=== PATIENT | male | born 1965 | race Hispanic/Latino ===

== ENCOUNTER 2019-12-01 16:35 | Observation (INO) | payer BC ==
[~2019-12-01] VITALS: Ht 172.7 cm; Wt 101.3 kg
--- NOTE | 2019-12-01 16:48 | NUR ---
PATIENT AMBULATED TO ROOM WITH STEADY GAIT AND PHYSICIAN NOTIFIED OF PATIENT STATUS
--- NOTE | 2019-12-01 16:50 | NUR ---
PT IN NO RESP DISTRESS, LUNGS CLEAR. UPDATED ON POC AND TESTING. AT [email or web address]
--- NOTE | 2019-12-01 17:15 | NUR ---
Portable xray done at this time. Explained wait time for results. Showed understanding
--- NOTE | 2019-12-01 17:20 | NUR ---
PT AND UPDATED ON PENDING LABS AND LACTIC ACID DRAWN ORDERED
[2019-12-01 17:36] LABS: HEMATOCRIT 40.1 % (39.0-50.0); IMMATURE GRANULOCYTES 0.8 % (0.0-5.0); MEAN CELL VOLUME 93.3 fL CALC (80.0-100.0); MEAN CORPUSCULAR HGB 32.1 pG CALC (26.0-32.0); MEAN CORPUSCULAR HGB CONC 34.4 g/dL CAL (32.0-36.0); NEUT# 27.12 thou/uL (1.82-7.42); RED BLOOD COUNT 4.3 mill/uL (4.70-6.10); RED CELL DISTRI WIDTH 13.9 % (11.5-15.5)
[2019-12-01] MEDS ORDERED: METFORMIN500 M2 PO (17:36)
[2019-12-01] MEDS ORDERED: LOVASTATIN40 M1 PO (17:36)
[2019-12-01] MEDS ORDERED: OMEPRAZOLE DR40 MG PO (17:36)
[2019-12-01] MEDS ORDERED: HYDROCHLOROT25 MG PO (17:37)
[2019-12-01] MEDS ORDERED: LISINOPRIL10 M1 PO (17:37)
[2019-12-01] MEDS ORDERED: DEPO-TESTOS200 MG/M1 IM (17:39)
[2019-12-01 17:41] LABS: HEMOGLOBIN 13.8 g/dl (14.0-18.0)
[2019-12-01 17:54] LABS: ANION GAP 13 (6-22 (CALC)); BUN 19 mg/dL (9-20); BUN/CREATININE RATIO 20 (12-20 (CALC)); CARBON DIOXIDE 26 mmol/l (22-30); CHLORIDE 98 mmol/l (95-108); GFR > 60 ML/MIN (>=60 (CALC)); GFR FOR AFR.AMER. > 60 ML/MIN (>=60 (CALC)); POTASSIUM 3.4 mmol/l (3.5-5.1)
[2019-12-01 18:03] LABS: SODIUM 134 mmol/l (137-146)
--- NOTE | 2019-12-01 18:25 | NUR ---
EDP at bedside to discuss clinical findings with pt
--- NOTE | 2019-12-01 18:45 | NUR ---
PT RESTING SUPINE IN NO DISTRESS, IV ABT INFUSING WELL. PT DENIES CO
[2019-12-01 18:59] LABS: C-REACTIVE PROTEIN 13.4 mg/dL (0-0.9)
--- NOTE | 2019-12-01 19:11 | NUR ---
REPORT TO DILMA REYES MS AND BEDSIDE REPORT TO TAMIA ESPARZA RN. PT ASSISTED TO WC ADN TELE APPLIED. IV AZITHROMYCIN STILL INFUSING, NO DIFFICULTIES . RESP EVEN AND UNLABORED
--- NOTE | 2019-12-01 19:17 | NUR ---
PT TRANSPORTED TO DC VIA WC WITH TAMIA ESPARZA RN IN NO DISTRESS
[2019-12-01 19:20] VITALS: BP 126/71
--- NOTE | 2019-12-01 19:21 | NUR ---
PT ARRIVED TO THE FLOOR VIA WC ACCOMPANIED BY ED NURSE. PT APPEARS TO BE IN STABLE CONDITION AT THIS TIME. AIDE IN W/PT OBTAINING WEIGHT, VS AND ORIENTING PT TO ROOM, CALL SYSTEM, LIGHTS AND TV. PT REPORTS BEING HUNGRY, WILL PROVIDE FOOD AVAILABLE.
--- NOTE | 2019-12-01 19:50 | NUR ---
PT ASSESSMENT COMPLETED AT THIS TIME. V/S ARE STABLE, TEMP 99.0 PT DENIES SOB, CHEST PAIN, DIZZINESS, ABD PAIN. NEURO'S APPEAR INTACT. LUNG SOUNDS ARE DIM/CLEAR. SKIN APPEARS INTACT. IV ANTIBIOTIC THERAPY COMPLETED AT THIS TIME AND 20 TO RLC FLUSHES/APPEARS HEALTHY. PT IS ASKING FOR FOOD, REPORTS BEING HUNGRY, WILL PROVIDE FOOD AND FLUIDS. PT DENIES ANY OTHER NEEDS AT THIS TIME.
[2019-12-01 20:23] LABS: URINE BILIRUBIN - DIPSTICK NEGATIVE (NEGATIVE); URINE BLOOD DIPSTICK TRACE-INTACT (NEGATIVE); URINE CLARITY CLEAR; URINE COLOR YELLOW; URINE GLUCOSE - DIPSTICK NEGATIVE (NEGATIVE); URINE KETONE NEGATIVE (NEGATIVE); URINE LEUK ESTERASE NEGATIVE (Negative); URINE NITRITE - DIPSTICK NEGATIVE (Negative); URINE PH 5.5 (4.5-8.0); URINE PROTEIN - DIPSTICK NEGATIVE (NEG-TRACE); URINE SPECIFIC GRAVITY 1.025; URINE UROBILINOGEN - DIPSTICK 0.2 E.U./dL (0.2)
--- NOTE | 2019-12-01 21:17 | NUR ---
BLOOD DRAWN FOR LAB ORDERED. FOOD PROVIDED. PT IS UPRIGHT TALKING ON CELL PHONE W/TV GOING. NO S/O DISTRESS NOTED. IVF RUNNING @100 TO SITE IN RAC/SITE HEALTHY.
[2019-12-02 01:31] VITALS: BP 102/62
[2019-12-02 04:02] VITALS: BP 106/66
--- NOTE | 2019-12-02 04:45 | NUR ---
BLOOD DRAWN FOR LAB AND IVF REPLENISHED. PT DENIES ANY OTHER NEEDS, PT WAS SLEEPING, BUT AWOKE TO MY ENTERING ROOM. URINAL EMPTIED OF 400CC OF CLEAR YELLOW URINE.
--- NOTE | 2019-12-02 07:15 | NUR ---
CHANGE OF SHIFT REPORT RECEIVED FROM AMY PERERA. PT IN [place] ISOLATION PENDING RESULT COVID-19 SWAB RESULT. ART PSYCHOTHERAPIST OR THERAPIST WILL CONTINUE TO MONITOR
[2019-12-02 07:54] LABS: HEMOGLOBIN 13.2 g/dl (14.0-18.0); IMMATURE GRANULOCYTES 0.4 % (0.0-5.0); MEAN CELL VOLUME 94.9 fL CALC (80.0-100.0); MEAN CORPUSCULAR HGB 32.1 pG CALC (26.0-32.0); MEAN CORPUSCULAR HGB CONC 33.8 g/dL CAL (32.0-36.0); NEUT# 16.93 thou/uL (1.82-7.42); RED BLOOD COUNT 4.11 mill/uL (4.70-6.10); RED CELL DISTRI WIDTH 14.4 % (11.5-15.5)
[2019-12-02 08:00] LABS: ANION GAP 10 (6-22 (CALC)); BUN 19 mg/dL (9-20); BUN/CREATININE RATIO 22 (12-20 (CALC)); CARBON DIOXIDE 24 mmol/l (22-30); CHLORIDE 101 mmol/l (95-108); CREATININE 0.9 mg/dL (0.7-1.3); GFR > 60 ML/MIN (>=60 (CALC)); GFR FOR AFR.AMER. > 60 ML/MIN (>=60 (CALC)); POTASSIUM 3.6 mmol/l (3.5-5.1); SODIUM 133 mmol/l (137-146)
[2019-12-02 08:38] VITALS: BP 142/81
--- NOTE | 2019-12-02 10:11 | NUR ---
BANK WORKER CALLED PCG BACK. PCG ABLE TO PROVIDE PT'S PIN NUMBER. POC REVIEWED WITH PCG. PCG ADVISED TO CALL BACK WITH ANY QUESTIONS OR CONCERNS. BANK WORKER WILL CONTINUE TO MONITOR.
[2019-12-02 11:05] VITALS: BP 109/55
--- NOTE | 2019-12-02 11:30 | NUR ---
POC REVIEWED WITH PT. FLUIDS DISCONTINUED PER ORDER. MEDICATION ADMINISTERED PER ORDER. PT DENIES PAIN OR DISCOMFORT. LIVE SOURCE OPERATOR WILL CONTINUE TO MONITOR. CALL LIGHT WITHIN EASY REACH.
--- NOTE | 2019-12-02 16:00 | NUR ---
PT RESTING COMFORTABLY. POC REVIEWED WITH PT. PT RECEPTIVE TO TEACHING. PT AGREES WITH POC. CALL LIGHT WITHIN EASY REACH, BED IN LOWEST POSITION COFFEE SHOP AIDE WILL CONTINUE TO MONITOR.
[2019-12-02 16:29] VITALS: BP 116/60
[2019-12-02 19:16] VITALS: BP 122/74
--- NOTE | 2019-12-02 19:40 | NUR ---
PT TAKING SHOWER, ASSISTED BY AIDE, PT DENIES WEAKNESS, SOB OR DIZZINESS AND IS SELF CARE. PT REMINDED OF [employer] IN RESTROOM/SHOWER FOR ASSISTANCE AND INSTRUCTED TO CALL WHEN OUT OF SHOWER FOR ANTIBIOTIC THERAPY TO BE ADMINISTERED. NO S/O DISTRESS NOTED.
--- NOTE | 2019-12-02 20:49 | NUR ---
PT MEDICATED W/IV ANTIBIOTIC THERAPY. PT REPORTS FEELING MUCH BETTER, ONLY SLIGHT PRESSURE IN CHEST LIKE HE HAD YESTEREDAY PRIOR TO COMING IN. POC DISCUSSED W/PT ALONG W/MEDICATIONS. PT IS TALKATIVE AND SMILING. NO S/O DISTRESS. PT ENCOURAGED TO CALL IF ANY NEEDS ARISE. DENIES NEED FOR FOOD, SNACK AT THIS TIME, HAS SNACKS ON BST. CALL LIGHT IN HAND.
[2019-12-03] VITALS: BP 115/68
--- NOTE | 2019-12-03 00:03 | NUR ---
AIDE IN W/PT OBTAINING V/S. PT DENIES ANY NEEDS AT THIS TIME. NO S/O DISTRESS NOTED. PT ENCOURAGED TO CALL NEEDS ARISE.
[2019-12-03 03:40] VITALS: BP 105/65
--- NOTE | 2019-12-03 04:36 | NUR ---
BLOOD DRAWN FOR LABS, PT DENIES ANY NEEDS AND REPORTS HAVING BEEN SLEEPING, AIDE WAS JUST IN OBTAINING V/S. ENCOURAGED PT TO CALL NEEDS ARISE.
[2019-12-03 04:58] LABS: HEMATOCRIT 40.9 % (39.0-50.0); HEMOGLOBIN 13.6 g/dl (14.0-18.0); MEAN CELL VOLUME 96.5 fL CALC (80.0-100.0); MEAN CORPUSCULAR HGB 32.1 pG CALC (26.0-32.0); MEAN CORPUSCULAR HGB CONC 33.3 g/dL CAL (32.0-36.0); RED BLOOD COUNT 4.24 mill/uL (4.70-6.10); RED CELL DISTRI WIDTH 14.2 % (11.5-15.5)
[2019-12-03 05:09] LABS: ALBUMIN 3.6 g/dL (3.2-5.0); ALKALINE PHOSPHATASE 68 u/l (38-126); ANION GAP 11 (6-22 (CALC)); BILIRUBIN, TOTAL 0.5 mg/dL (0.0-1.4); BUN 16 mg/dL (9-20); BUN/CREATININE RATIO 19 (12-20 (CALC)); CARBON DIOXIDE 25 mmol/l (22-30); CHLORIDE 104 mmol/l (95-108); CREATININE 0.9 mg/dL (0.7-1.3); GFR > 60 ML/MIN (>=60 (CALC)); GFR FOR AFR.AMER. > 60 ML/MIN (>=60 (CALC)); POTASSIUM 4.1 mmol/l (3.5-5.1); SGOT/AST 25 u/l (17-59); SODIUM 136 mmol/l (137-146); TOTAL PROTEIN 6.5 g/dL (6.3-8.2)
--- NOTE | 2019-12-03 07:30 | NUR ---
REPORT RECEIVED FROM AMY PERERA. PT SITTING UP IN BED EATING BREAKFAST; ALERT AND ORIENTED. DENIES PAIN. RESPIRATIONS EVEN AND UNLABORED ON ROOM AIR. C/O MILD SOB WITH EXERTION AND PRODUCTIVE COUGH. IV SITE APPEARS HEALTHY. TELE ON. PLAN OF CARE REVIEWED. PT ENCOURAGED TO VERBALIZE CONCERNS. STATES UNDERSTANDING. SAFETY MEASURES IN PLACE. CALL LIGHT WITHIN REACH.
[2019-12-03 08:00] VITALS: BP 119/73
[2019-12-03 08:19] VITALS: BP 119/73
--- NOTE | 2019-12-03 09:56 | NUR ---
CALLED FOR UPDATE; QUESTIONS ANSWERED TO SATISFACTION.
[2019-12-03] MEDS ORDERED: ZITHROMAX250 MG PO (10:04)
[2019-12-03] MEDS ORDERED: OMNICEF300 MG PO (10:04)
--- NOTE | 2019-12-03 10:44 | NUR ---
IV site discontinued, cath intact. No edema , no redness, voices no discomfort.
--- NOTE | 2019-12-03 11:35 | NUR ---
Discharge instructions given. Patient verbalizes understanding of same. Discharged in stable condition via Wheelchair to Home with spouse. All belongings sent with pt.
--- NOTE | 2019-12-12 11:30 | NUR ---
Pneumonia discharge follow up call completed 12/11/19. Pt. states he is doing very well, breathing well, and feeeling much better. PCP was seen today and pt received good report. Discharge medications were obtained and taken without difficulty. No questions or needs expressed by patient. w
== END 2019-12-03 11:35 | disposition home or self-care (01) | DRG 195 ==
LOC: ED 16:35 → ED-I 18:21 → ED 18:39 → ED-I 18:40 → MS2 18:51
PROVIDERS: Family Medicine; Nurse Practitioner Family; ADMIT Internal Medicine; ATTEND Internal Medicine
DX: J18.9 Pneumonia, unspecified organism (principal); J02.0 Streptococcal pharyngitis; I10 Essential (primary) hypertension; E78.5 Hyperlipidemia, unspecified; R73.03 Prediabetes; Z20.828 Contact with and (suspected) exposure to other viral communicable diseases
CPT/HCPCS: G0378

== ENCOUNTER 2021-05-13 08:31 | Emergency (ER) | payer BC ==
[~2021-05-13] VITALS: Ht 172.7 cm; Wt 93.0 kg
[~2021-05-13 08:31] MED LIST: DEPO-TESTOS200 MG/M1 IM; HYDROCHLOROT25 MG PO; LISINOPRIL10 M1 PO; LOVASTATIN40 M1 PO; METFORMIN500 M2 PO; OMEPRAZOLE DR40 MG PO; OMNICEF300 MG PO; ZITHROMAX250 MG PO
[2021-05-13 09:18] VITALS: BP 135/77
[2021-05-13] MEDS ORDERED: Levaquin PO (10:56)
[2021-05-13] MEDS ORDERED: TESSALON PERLE100 MG PO (10:56)
== END 2021-05-13 11:16 | disposition home or self-care (01) | DRG 203 ==
LOC: ED 08:31
DX: J40 Bronchitis, not specified as acute or chronic (principal); J32.9 Chronic sinusitis, unspecified; I10 Essential (primary) hypertension; Z87.01 Personal history of pneumonia (recurrent); Z20.822 Contact with and (suspected) exposure to COVID-19

== ENCOUNTER 2022-01-06 22:26 | Emergency (ER) | payer BC ==
[~2022-01-06] VITALS: Ht 172.7 cm; Wt 95.0 kg
[~2022-01-06 22:26] MED LIST changes: +Levaquin PO; +TESSALON PERLE100 MG PO
[2022-01-06 22:38] VITALS: BP 122/76
[2022-01-06 22:45] VITALS: BP 123/79
[2022-01-06 23:00] VITALS: BP 124/78
[2022-01-06 23:04] LABS: IMMATURE GRANULOCYTES 0.2 % (0.0-5.0); MEAN CELL VOLUME 94.3 fL CALC (80.0-100.0); MEAN CORPUSCULAR HGB 30.2 pG CALC (26.0-32.0); NEUT# 5.41 thou/uL (1.82-7.42); RED BLOOD COUNT 4.4 mill/uL (4.70-6.10)
[2022-01-06 23:05] LABS: HEMATOCRIT 41.5 % (39.0-50.0); HEMOGLOBIN 13.3 g/dl (14.0-18.0)
[2022-01-06 23:15] VITALS: BP 110/72
[2022-01-06 23:29] LABS: ALKALINE PHOSPHATASE 58 u/l (38-126); AMYLASE 94 u/l (30-110); ANION GAP 16 (6-22 (CALC)); BILIRUBIN, TOTAL 0.4 mg/dL (0.0-1.4); BUN 22 mg/dL (9-20); BUN/CREATININE RATIO 24 (12-20 (CALC)); CARBON DIOXIDE 22 mmol/l (22-30); CHLORIDE 103 mmol/l (95-108); CREATININE 0.9 mg/dL (0.7-1.3); GFR FOR AFR.AMER. > 60 ML/MIN (>=60 (CALC)); GFR OTHER RACES > 60 ML/MIN (>=60 (CALC)); LIPASE 219 u/l (23-300); POTASSIUM 3.8 mmol/l (3.5-5.1); SGOT/AST 25 u/l (17-59); SODIUM 138 mmol/l (137-146); TOTAL PROTEIN 7.5 g/dL (6.3-8.2)
[2022-01-06 23:30] VITALS: BP 111/65
[2022-01-06 23:30] LABS: ALBUMIN 4.7 g/dL (3.2-5.0)
[2022-01-06 23:45] VITALS: BP 127/79
[2022-01-07] VITALS (9 sets, daily range): BP systolic 107–130; BP diastolic 67–85
[2022-01-07] MEDS ORDERED: TRAMADOL HCL50 MG PO (02:09)
== END 2022-01-07 02:40 | disposition home or self-care (01) | DRG 392 ==
LOC: ED 22:26
PROVIDERS: Family Medicine
DX: R10.9 Unspecified abdominal pain (principal)
CPT/HCPCS: Q9967